=== PATIENT | male | born 1995 | race Caucasian/White ===

== ENCOUNTER 2016-10-15 14:58 | Emergency (ER) | payer BC, OTHER ==
[2016-10-15 17:30] LABS: Hematocrit 45 % (42-52); Hemoglobin 15.2 g/dl (14.0-18.0); Mean Corpuscular HGB Conc 34 g/dl (31-36); Mean Corpuscular Hemoglobin 29 pg (27-31); Mean Corpuscular Volume 84 fL (80-94); Mean Platelet Volume 8 um3 (7.4-10.4); Red Blood Count 5.32 10^6/ul (4.0-5.4); Red Cell Distribution Width 13 % (10.5-15); White Blood Count 8.6 10^3/ul (3.5-10.8)
[2016-10-15 17:45] LABS: Albumin 4.7 g/dL (3.2-5.2); Calcium 9.8 mg/dL (8.6-10.3); EGFR African American 148.3 (>60); EGFR Non-African American 115.3 (>60); Globulin 3.2 g/dL (2-4); Potassium 3.7 mmol/L (3.5-5.0); Total Bilirubin 0.7 mg/dL (0.2-1.0); Total Protein 7.9 g/dL (6.4-8.9)
[2016-10-15 19:52] VITALS: BP 127/89
--- NOTE | 2016-10-15 22:06 | ED ---
Satish Hameed Matthew, scribed for Augusto Sorensen MD on 10/15/16 at 1804 . Complex/Multi-Sys Presentation - HPI Summary HPI Summary: A 20 y/o male presents to the ED from [facility] urgent care for low calcium. Per the patient, he went to urgent care for diffuse skin tingling and numbness since 4 days ago. While there they noticed low calcium levels and preformed an EKG, which he stated was normal. The tingling/numbness is worse in the fingers and effects the face. He's woken up in the past 3 days feeling better; however after an hour the feeling returns. He has not taken any new medications recently. - History Of Current Complaint Chief Complaint: EDGeneral Time Seen by Provider: 10/15/16 16:54 Hx Obtained From: Patient Onset/Duration: Lasting Days, Still Present Timing: Constant Severity Currently: Mild Severity Initially: Mild Associated Signs And Symptoms: Positive: Other - diffuse skin numbness and tingling - Allergies/Home Medications Allergies/Adverse Reactions: Allergies Allergy/AdvReac Type Severity Reaction Status Date / Time No Known Allergies Allergy Verified 05/16/15 08:09 PMH/Surg Hx/FS Hx/Imm Hx Previously Healthy: Yes Endocrine/Hematology History: Denies: Hx Diabetes - Immunization History Date of Tetanus Vaccine: unknown Infectious Disease History: Denies: Traveled Outside the [place] in Last 30 Days - Family History Known Family History: Negative: Cardiac Disease, Hypertension, Diabetes - Social History Alcohol Use: Occasionally Substance Use Type: Reports: None Smoking Status (MU): Never Smoked Tobacco Review of Systems Constitutional: Negative Eyes: Negative ENT: Negative Cardiovascular: Negative Respiratory: Negative Gastrointestinal: Negative Genitourinary: Negative Musculoskeletal: Negative Skin: Other - tingling and numbness in Neurological: Negative Psychological: Normal All Other Systems Reviewed And Are Negative: Yes Physical Exam Triage Information Reviewed: Yes Vital Signs On Initial Exam: Initial Vitals Temp Pulse Resp BP Pulse Ox 97.8 F 80 18 144/76 100 10/15/16 15:01 10/15/16 15:01 10/15/16 15:01 10/15/16 15:01 10/15/16 15:01 Vital Signs Reviewed: Yes Appearance: Positive: Well-Appearing, No Pain Distress Skin: Positive: Warm, Skin Color Reflects Adequate Perfusion, Dry Head/Face: Positive: Normal Head/Face Inspection Eyes: Positive: Normal ENT: Positive: Normal ENT inspection Neck: Positive: Supple, Nontender Respiratory/Lung Sounds: Positive: Clear to Auscultation, Breath Sounds Present Cardiovascular: Positive: RRR Abdomen Description: Positive: Nontender, Soft Bowel Sounds: Positive: Present Musculoskeletal: Positive: Normal, Strength/ROM Intact Neurological: Positive: Normal, Sensory/Motor Intact, Alert, Oriented to Person Place, Time Diagnostics - Vital Signs Vital Signs Temp Pulse Resp BP Pulse Ox 10/15/16 16:14 98.8 F 67 18 144/78 98 10/15/16 15:01 97.8 F 80 18 144/76 100 - Laboratory Lab Results: Lab Results 10/15/16 10/15/16 10/15/16 Range/Units 17:17 17:17 17:17 WBC 8.6 (3.5-10.8) 10^3/ul RBC 5.32 (4.0-5.4) 10^6/ul Hgb 15.2 (14.0-18.0) g/dl Hct 45 (42-52) % MCV 84 (80-94) fL MCH 29 (27-31) pg MCHC 34 (31-36) g/dl RDW 13 (10.5-15) % Plt Count 320 (150-450) 10^3/ul MPV 8 (7.4-10.4) um3 Neut % (Auto) 60.2 (38-83) % Lymph % (Auto) 30.7 (25-47) % Scott % (Auto) 7.5 (1-9) % Eos % (Auto) 1.1 (0-6) % Baso % (Auto) 0.5 (0-2) % Absolute Neuts (auto) 5.2 (1.5-7.7) 10^3/ul Absolute Lymphs (auto) 2.6 (1.0-4.8) 10^3/ul Absolute Monos (auto) 0.6 (0-0.8) 10^3/ul Absolute Eos (auto) 0.1 (0-0.6) 10^3/ul Absolute Basos (auto) 0 (0-0.2) 10^3/ul Absolute Nucleated RBC 0.01 10^3/ul Nucleated RBC % 0.2 Sodium 133 (133-145) mmol/L Potassium 3.7 (3.5-5.0) mmol/L Chloride 101 (101-111) mmol/L Carbon Dioxide 25 (22-32) mmol/L Anion Gap 7 (2-11) mmol/L BUN 16 (6-24) mg/dL Creatinine 0.84 (0.67-1.17) mg/dL Est GFR ( Amer) 148.3 (>60) Est GFR (Non-Af Amer) 115.3 (>60) BUN/Creatinine Ratio 19.0 (8-20) Glucose 112 H (70-100) mg/dL Calcium 9.8 (8.6-10.3) mg/dL Ionized Calcium 4.66 (4.65-5.28) mg/dL Total Bilirubin 0.70 (0.2-1.0) mg/dL AST 22 (13-39) U/L ALT 17 (7-52) U/L Alkaline Phosphatase 58 (34-104) U/L Total Protein 7.9 (6.4-8.9) g/dL Albumin 4.7 (3.2-5.2) g/dL Globulin 3.2 (2-4) g/dL Albumin/Globulin Ratio 1.5 (1-3) Result Diagrams: 10/15/16 17:17 10/15/16 17:17 Lab Statement: Any lab studies that have been ordered have been reviewed, and results considered in the medical decision making process. Complex Multi-Symp Course/Dx Course Of Treatment: Mr. De La Rosa presented C/O diffuse skin parasthesias for 4 days. It is a bit equivocal whether his face is included or not. He had no neck pain. He had been told at [facility] that his Ca++ was low at 4. His ionized Ca++ here was 4.66 which is low normal. I'm not sure what the etiology of his symptoms is and I recommended that he get close F/U preferably starting at [place]. - Diagnoses Provider Diagnoses: Paresthesia of skin Discharge - Discharge Plan Condition: Stable Disposition: HOME Patient Education Materials: Paresthesia (ED) [facility] - [facility] [Outside] Additional Instructions: Please follow-up with [facility] and/or call the number below to find an internal medicine physician. The documentation as recorded by the scribe, Grimsbo,Juan accurately reflects the service I personally performed and the decisions made by me, Augusto Sorensen MD.
== END 2016-10-15 20:10 | disposition home or self-care (01) ==
LOC: ED 14:58
DX: R20.0 Anesthesia of skin (principal)
CPT/HCPCS: 36415; 80053; 82330; 85025; 99283